=== PATIENT | male | born 2000 | race African-American/Black ===

== ENCOUNTER 2019-09-06 21:00 | Emergency (ER) | payer OTHER, SELFPAY ==
[~2019-09-06] VITALS: Ht 185.4 cm; Wt 85.3 kg
[2019-09-06 21:30] VITALS: BP_SYST 132
--- NOTE | 2019-09-06 21:30 | NUR ---
Pt c/o flu like symptoms: runny nose, cough, sore throat, headache x 4 days. Has been in physical contact with friends are recently tested positive for COVID-19. No shortness of breath or chest pain. Asthma as a child but no recurrence in his teenage years or adult life.
--- NOTE | 2019-09-06 22:40 | NUR ---
ER inside tent examining patient.
[2019-09-06 23:35] VITALS: BP_SYST 128
--- NOTE | 2019-09-06 23:35 | NUR ---
Patient given written and verbal discharge instructions and verbalizes understanding. ER MD discussed with patient the results and treatment provided. Patient in stable condition. ID arm band removed. No Rx given. Patient educated on pain management and to follow up with PMD. Pain Scale 2/10. Opportunity for questions provided and answered.
== END 2019-09-06 23:35 | disposition home or self-care (01) ==
LOC: SED 21:00
DX: U07.1 COVID-19 (principal); J11.1 Influenza due to unidentified influenza virus with other respiratory manifestations
CPT/HCPCS: 99283; U0003; C9803-CS